=== PATIENT | female | born 1975 | race Caucasian/White ===

== ENCOUNTER 2022-11-24 06:27 | Outpatient (CLI) | payer OTHER ==
[~2022-11-24] VITALS: Ht 170.2 cm; Wt 91.8 kg
[2022-11-24 06:45] VITALS: BP 163/77; O2SAT 100
[2022-11-24] MEDS ORDERED: NS 1,000 ML IV SCH (07:00)
[2022-11-24] MEDS ORDERED: IRON SUCROSE 200 MG in NS 190 ML IV ONE (07:00)
[2022-11-24] MEDS ORDERED: ACETAMINOPHEN TAB 650MG DOSE (2X325MG) PO ONE (07:00)
[2022-11-24] MEDS ORDERED: methylPREDNISolone 125MG 2ML VIAL IV PRN (07:01)
[2022-11-24] MEDS ORDERED: diphenhydrAMINE 50MG/ML VIAL IV PRN (07:01)
[2022-11-24] MEDS ORDERED: EPINEPHrine INJ 1 MG/ML 1ML AMP IM PRN (07:01)
[2022-11-24] MEDS ORDERED: ALBUTEROL SULFATE 2.5MG/0.5ML INH NEB SOLN INH PRN (07:01)
[2022-11-24 08:11] VITALS: BP 120/71; O2SAT 100
== END 2022-11-24 08:10 ==
LOC: M INFU 06:27
PROVIDERS: ATTEND Family Medicine
DX: D50.9 Iron deficiency anemia, unspecified (principal)
CPT/HCPCS: 96365; J1756

== ENCOUNTER 2022-12-01 06:40 | Outpatient (CLI) | payer OTHER ==
[~2022-12-01] VITALS: Ht 170.2 cm; Wt 92.0 kg
[2022-12-01 06:40] VITALS: BP 129/73; O2SAT 100
[2022-12-01] MEDS ORDERED: diphenhydrAMINE 50MG/ML VIAL IV PRN (07:00)
[2022-12-01] MEDS ORDERED: methylPREDNISolone 125MG 2ML VIAL IV PRN (07:00)
[2022-12-01] MEDS ORDERED: EPINEPHrine INJ 1 MG/ML 1ML AMP IM PRN (07:00)
[2022-12-01] MEDS ORDERED: IRON SUCROSE 200 MG in NS 190 ML IV ONE (07:00)
[2022-12-01] MEDS ORDERED: ACETAMINOPHEN TAB 650MG DOSE (2X325MG) PO ONE (07:00)
[2022-12-01] MEDS ORDERED: ALBUTEROL SULFATE 2.5MG/0.5ML INH NEB SOLN INH PRN (07:00)
[2022-12-01] MEDS ORDERED: NS 1,000 ML IV SCH (07:00)
[2022-12-01 08:30] VITALS: BP 103/58; O2SAT 100
== END 2022-12-01 08:30 | disposition home or self-care (01) ==
LOC: M INFU 06:40 → EDUNIT# 07:00 → M INFU 08:30
PROVIDERS: ATTEND Family Medicine
DX: D50.8 Other iron deficiency anemias (principal)
CPT/HCPCS: 96365; J1756

== ENCOUNTER 2022-12-15 08:00 | Outpatient (CLI) | payer OTHER ==
[~2022-12-15] VITALS: Ht 160 cm; Wt 81.8 kg
[2022-12-15 08:00] VITALS: BP 129/73; O2SAT 100
[~2022-12-15 08:00] MED LIST: ACETAMINOPHEN TAB 650MG DOSE (2X325MG) PO ONE; ALBUTEROL SULFATE 2.5MG/0.5ML INH NEB SOLN INH PRN; EPINEPHrine INJ 1 MG/ML 1ML AMP IM PRN; IRON SUCROSE 200 MG in NS 190 ML IV ONE; NS 1,000 ML IV SCH; diphenhydrAMINE 50MG/ML VIAL IV PRN; methylPREDNISolone 125MG 2ML VIAL IV PRN
[2022-12-15 09:50] VITALS: BP 134/83; O2SAT 100
== END 2022-12-15 09:50 | disposition home or self-care (01) ==
LOC: EDUNIT# 08:00 → M INFU 08:00
PROVIDERS: ATTEND Family Medicine
DX: D50.9 Iron deficiency anemia, unspecified (principal)
CPT/HCPCS: 96365; J1756

== ENCOUNTER 2022-12-22 09:00 | Outpatient (CLI) | payer OTHER ==
[~2022-12-22] VITALS: Ht 160 cm; Wt 81.8 kg
[2022-12-22 08:55] VITALS: BP 163/88; O2SAT 100
[~2022-12-22 09:00] MED LIST changes: +ACETAMINOPHEN 650MG PO PRIOR TO INFUSION PO ONE; -ACETAMINOPHEN TAB 650MG DOSE (2X325MG) PO ONE; +IRON SUCROSE 200 MG in NS 100 ML OVER 1 HR IV ONE; -IRON SUCROSE 200 MG in NS 190 ML IV ONE
[2022-12-22 10:00] VITALS: BP 125/63; O2SAT 97
[2022-12-22 10:30] VITALS: BP 123/69; O2SAT 97
[2022-12-22 11:00] VITALS: BP 123/65; O2SAT 98
[2022-12-22 11:35] VITALS: BP 134/76; O2SAT 99
== END 2022-12-22 11:35 | disposition home or self-care (01) ==
LOC: EDUNIT# 09:00 → M INFU 09:00
PROVIDERS: ATTEND Family Medicine
DX: D50.8 Other iron deficiency anemias (principal)
CPT/HCPCS: 96365; 96366; J1756